=== PATIENT | female | born 1950 | race Caucasian/White ===

== ENCOUNTER 2018-04-30 16:12 | Emergency (ER) | payer MEDICARE, OTHER ==
--- NOTE | 2018-04-30 18:19 | RAD ---
LEFT TOES THREE VIEWS: Date: 04-30-18 History: Pain involving the base of the fourth toe. FINDINGS: There is a comminuted obliquely oriented fracture involving the mid shaft of the fourth proximal phal anx. No additional acute fracture noted. There is degenerative irregularity involving the proximal interphalangeal joint of the fifth toe. IMPRESSION: Fracture deformity involving the fourth proximal phalanx. POS: [facility]
== END 2018-04-30 18:06 | disposition home or self-care (01) ==
LOC: ERS 16:12
DX: S92.515A Nondisplaced fracture of proximal phalanx of left lesser toe(s), initial encounter for closed fracture (principal); W22.8XXA Striking against or struck by other objects, initial encounter

== ENCOUNTER 2020-10-24 06:59 | Day surgery (SDC) | payer MEDICARE, OTHER ==
[2020-10-23 13:53] VITALS: BMI 35.2
[2020-10-24] MEDS ORDERED: Acetaminophen 500 MG TAB ONE ×2 (07:59→08:03)
[2020-10-24] MEDS ORDERED: Ketorolac Tromethamine 30 MG/ML VIAL ONE (07:59)
[2020-10-24] MEDS ORDERED: Gabapentin 300 MG CAP ONE (08:37)
[2020-10-24 09:11] LABS: #Eosinphils 0.2 thou/uL (0.0-0.7); #Lymphocytes 1.7 thou/uL (1.20-3.40); #Monocytes 0.7 thou/uL (0.11-0.59); #Neutrophils 5.1 thou/uL (1.40-6.50); %Basophils 0.2 % (0.0-1.0); %Eosinophils 2.4 % (0.0-10.0); %Lymphocytes 21.7 % (21.0-51.0); %Monocytes 9.6 % (0.0-10.0); %Neutrophils 66.1 % (42.0-75.0); Hemoglobin 12.9 g/dL (12.0-16.0); Mean Corpuscular HGB CONC 32.3 g/dL (32.0-36.0); Mean Corpuscular Hemoglobin 28.7 pg (27.0-31.0); Mean Platelet Volume 6.6 fL (7.4-10.4); Platelet Count 276 thou/uL (130-400); RBC Distribution Width 12.3 % (11.5-14.5); White Blood Cell (WBC) Count 7.6 thou/uL (4.8-10.8)
[2020-10-24] MEDS ORDERED: Bupivacaine PF 0.5% 30 ML VIAL ONE (09:15)
[2020-10-24] MEDS ORDERED: Lidocaine 1% w/Epinephrine 1:100K 20 ML VIAL ONE (09:15)
[2020-10-24] MEDS ORDERED: Bacitracin Zinc Ointment 30 gm TUBE ONE (09:15)
[2020-10-24] MEDS ORDERED: Midazolam HCl 2 mg/2 ml Vial ONE (09:24)
[2020-10-24] MEDS ORDERED: Fentanyl 100 MCG/2 ML VIAL ONE (09:24)
[2020-10-24] MEDS ORDERED: Dextrose 50% Abboject 50 ML SYRINGE ONE (09:29)
[2020-10-24 09:33] LABS: Anion Gap 11 mmol/L (10-20); BUN (Urea Nitrogen) 22 mg/dL (9.8-20.1); Calc. Creatinine Clearance 101 mL/min (70-130); Calcium 9.4 mg/dL (7.8-10.44); Carbon Dioxide 26 mmol/L (23-31); Chloride 106 mmol/L (98-107); Glucose 83 mg/dL (80-115); Potassium 4.3 mmol/L (3.5-5.1); Sodium 139 mmol/L (136-145)
[2020-10-24] MEDS ORDERED: Lidocaine 1% PF 5 ML VIAL ONE (09:34)
[2020-10-24] MEDS ORDERED: ePHEDrine Sulfate 50 MG/10 ML VIAL ONE (09:34)
[2020-10-24] MEDS ORDERED: PHENYLEPHRINE-NS 100 MCG/ML 10 ML SYRINGE ONE (09:34)
[2020-10-24] MEDS ORDERED: Ondansetron PF 4 MG/2 ML Vial ONE (09:34)
[2020-10-24] MEDS ORDERED: PROPOFOL 200 MG/20 ML VIAL ONE (09:34)
[2020-10-24] MEDS ORDERED: HYDROcodone/Acetaminophen 5/325 mg Tablet ONE (12:53)
== END 2020-10-24 13:13 | disposition home or self-care (01) ==
LOC: SDC 06:59
PROVIDERS: ATTEND Specialist
PROC: 0JBM0ZZ Excision of Left Upper Leg Subcutaneous Tissue and Fascia, Open Approach (ICD-10-PCS; principal; 2020-10-24)
DX: D17.24 Benign lipomatous neoplasm of skin and subcutaneous tissue of left leg (principal); E13.9 Other specified diabetes mellitus without complications; E78.00 Pure hypercholesterolemia, unspecified; Z79.4 Long term (current) use of insulin; Z79.811 Long term (current) use of aromatase inhibitors; Z79.82 Long term (current) use of aspirin; Z79.899 Other long term (current) drug therapy
CPT/HCPCS: 36415; 36416; 80048; 85025; 88304; 93005; 93010; J0690; J1885; J2250; J2405; J2704; J3010; S0020